=== PATIENT | male | born 1935 | race Caucasian/White ===

== ENCOUNTER 2017-08-26 08:55 | Outpatient (CLI) | payer MEDICARE, BC ==
--- NOTE | 2017-08-26 10:48 | ULT ---
ULTRASOUND OF THE ABDOMINAL AORTA: INDICATIONS: History of abdominal aortic aneurysm. FINDINGS: There is ectasia of the infrarenal abdominal aorta, distally, just prior to the bifurcation, measurin g up to 2.8 cm. The mid abdominal aorta measures 1.6 cm. The proximal abdominal aorta measures 2.1 cm. There is moderate atherosclerotic irregularity. The right common iliac artery measures 1.2 cm. The left common iliac artery measures 1.1 cm. IMPRESSION: Mild ectasia of the distal abdominal aorta and bilateral common iliac arteries with moderate atherosc lerotic irregularity. POS: [facility]
== END 2017-08-26 08:56 | disposition home or self-care (01) ==
LOC: ULT 08:55
PROVIDERS: ATTEND Internal Medicine Cardiovascular Disease
DX: I71.4 Abdominal aortic aneurysm, without rupture (principal); I77.811 Abdominal aortic ectasia; I70.8 Atherosclerosis of other arteries
CPT/HCPCS: 76775

== ENCOUNTER 2017-10-17 12:56 | Emergency (ER) | payer MEDICARE, BC ==
[2017-10-17 13:33] LABS: #Eosinphils 0.1 thou/uL (0.0-0.7); #Monocytes 0.5 thou/uL (0.11-0.59); #Neutrophils 1.9 thou/uL (1.40-6.50); %Basophils 0.4 % (0.0-1.0); %Eosinophils 2.3 % (0.0-10.0); %Lymphocytes 43.9 % (21.0-51.0); %Monocytes 11.5 % (0.0-10.0); %Neutrophils 41.9 % (42.0-75.0); Hemoglobin 12.4 g/dL (14.0-18.0); Mean Corpuscular HGB CONC 35.1 g/dL (32.0-36.0); Mean Corpuscular Hemoglobin 33.3 pg (27.0-31.0); Mean Corpuscular Volume 94.9 fL (78.0-98.0); Mean Platelet Volume 6.6 fL (7.4-10.4); Platelet Count 178 thou/uL (130-400); RBC Distribution Width 11.8 % (11.5-14.5); Red Blood Cell (RBC) Count 3.71 mill/uL (4.70-6.10); White Blood Cell (WBC) Count 4.4 thou/uL (4.8-10.8)
[2017-10-17 13:52] LABS: ALT (SGPT) 11 U/L (8-55); AST (SGOT) 20 U/L (5-34); Albumin 4.3 g/dL (3.4-4.8); Alkaline Phosphatase 47 U/L (40-150); Anion Gap 14 mmol/L (10-20); BUN (Urea Nitrogen) 21 mg/dL (8.4-25.7); Bilirubin, Total 0.7 mg/dL (0.2-1.2); Calc. Creatinine Clearance 0 mL/min (70-130); Calcium 9.3 mg/dL (7.8-10.44); Carbon Dioxide 22 mmol/L (23-31); Chloride 99 mmol/L (98-107); Estimated GFR-MDRD 61; Globulin 2.9 g/dL (2.4-3.5); Glucose 125 mg/dL (83-110); Potassium 4.2 mmol/L (3.5-5.1); Protein, Total 7.2 g/dL (5.8-8.1); Sodium 131 mmol/L (136-145)
[2017-10-17 14:48] LABS: CKMB 3.8 ng/mL (0-6.6); Troponin I Less than 0.010 ng/mL (< 0.028)
== END 2017-10-17 15:15 | disposition home or self-care (01) ==
LOC: ERS 12:56
DX: R53.1 Weakness (principal); I11.0 Hypertensive heart disease with heart failure; J32.9 Chronic sinusitis, unspecified; I50.9 Heart failure, unspecified; E78.00 Pure hypercholesterolemia, unspecified; I48.91 Unspecified atrial fibrillation; I25.10 Atherosclerotic heart disease of native coronary artery without angina pectoris
CPT/HCPCS: 36415; 80053; 82553; 84484; 85025; 93005

== ENCOUNTER 2018-09-29 07:43 | Outpatient (CLI) | payer MEDICARE, BC ==
--- NOTE | 2018-09-29 11:02 | CT ---
CT ABDOMEN AND PELVIS WITH CONTRAST: Indications: Abdominal pain, weight loss, constipation. Comparison: None. FINDINGS: Images through the lung bases are clear. The liver, spleen, and pancreas are unremarkable. There are numerous calcified gallstones layering dependently in a mildly distended gallbladder. No bi liary duct dilatation. Adrenal glands normal. Kidneys unremarkable. There are numerous tiny low density foci in both kidneys which are subcentimete r and too small to characterize, probably representing tiny cysts. No evidence of hydronephrosis or u rinary tract calculus. The bladder is distended. Prostate shows mild hypertrophy. Small bowel loops are normal caliber. Appendix appears normal. Colon unremarkable. The aorta is calcified and tortuous. The aorta exhibits fusiform aneurysmal dilatation measuring up t o 3.3 cm diameter. Small amount of thrombus in the gonzales of the aorta. Common iliac arteries are ecta tic. Diffuse arterial calcification. No evidence of mass, adenopathy or free fluid. IMPRESSION: 1. Cholelithiasis. 2. Aorta is diffusely calcified and tortuous. Mild fusiform aneurysmal dilatation of the abdominal ao rta with aortic diameter in the low abdominal aorta measuring 3.0 cm in the coronal plane and 3.3 cm in the axial plane. 3. Urinary bladder distention. POS: [facility]
[2018-09-29] MEDS ORDERED: ISOVUE-370 76%-LOCM 1 ML ONE (16:25)
== END 2018-09-29 07:44 | disposition home or self-care (01) ==
LOC: BICCT 07:43
PROVIDERS: ATTEND Physician Assistant Medical
DX: K59.00 Constipation, unspecified (principal); R10.9 Unspecified abdominal pain; R63.4 Abnormal weight loss; K80.20 Calculus of gallbladder without cholecystitis without obstruction; I71.4 Abdominal aortic aneurysm, without rupture; N32.89 Other specified disorders of bladder
CPT/HCPCS: 74177

== ENCOUNTER 2020-01-14 06:59 | Outpatient (CLI) | payer MEDICARE, BC ==
[2020-01-14 12:55] LABS: #Eosinphils 0.3 10x3/uL (0.0-0.5); #Monocytes 0.8 10x3/uL (0.0-1.1); #Neutrophils 3.2 10x3/uL (1.5-8.4); %Basophils 0.5 % (0.0-2.0); %Eosinophils 4.1 % (0.0-6.0); %Lymphocytes 33.6 % (18.0-47.0); %Monocytes 11.9 % (0.0-10.0); %Neutrophils 49.7 % (40.0-75.0); Mean Corpuscular HGB CONC 33.1 G/DL (32.0-36.0); Mean Corpuscular Hemoglobin 31.7 PG (27.0-33.0); Mean Corpuscular Volume 95.9 fl (80.0-100.0); Mean Platelet Volume 10.3 fl (7.4-10.4); Platelet Count 156 10x3/uL (130-400); RBC Distribution Width 13.3 % (11.5-14.5); Red Blood Cell (RBC) Count 3.15 10x6/uL (4.40-5.80); White Blood Cell (WBC) Count 6.4 10x3/uL (4.5-11.0)
[2020-01-14 13:37] LABS: ALT (SGPT) 14 U/L (8-55); AST (SGOT) 26 U/L (5-34); Albumin 4.4 g/dL (3.4-4.8); Alkaline Phosphatase 54 U/L (40-110); Anion Gap 16 mmol/L (10-20); BUN (Urea Nitrogen) 41 mg/dL (8.4-25.7); Bilirubin, Total 0.8 mg/dL (0.2-1.2); Calc. Creatinine Clearance 0 mL/min (70-130); Calcium 9.2 mg/dL (7.8-10.44); Carbon Dioxide 25 mmol/L (23-31); Chloride 98 mmol/L (98-107); Estimated GFR-MDRD 49; Globulin 2.7 g/dL (2.4-3.5); Glucose 97 mg/dL (83-110); Potassium 5.4 mmol/L (3.5-5.1); Protein, Total 7.1 g/dL (5.8-8.1); Sodium 134 mmol/L (136-145)
[2020-01-15 00:33] LABS: SARS-CoV-2 MS2 Positive; SARS-CoV-2 N Gene Negative; SARS-CoV-2 S Gene Negative; SARS-CoV-2 by NAA Not Detected (NotDetected); SARS-CoV-2 orf1ab Negative
== END 2020-01-14 07:00 | disposition home or self-care (01) ==
LOC: LABBT 06:59
PROVIDERS: ATTEND Internal Medicine Cardiovascular Disease
DX: Z01.812 Encounter for preprocedural laboratory examination (principal); Z20.828 Contact with and (suspected) exposure to other viral communicable diseases; I35.0 Nonrheumatic aortic (valve) stenosis
CPT/HCPCS: 80053; 85025; U0003; 87635

== ENCOUNTER 2020-01-17 05:57 | Day surgery (SDC) | payer MEDICARE, BC ==
[2020-01-16 11:49] VITALS: BMI 21.7
[2020-01-17] MEDS ORDERED: Fentanyl 100 MCG/2 ML VIAL ONE (07:41)
[2020-01-17] MEDS ORDERED: Acetaminophen/Codeine 30-300mg Tablet ONE (10:08)
[2020-01-17] MEDS ORDERED: Acetaminophen/Codeine 30-300mg Tablet PO PRN ×2 (12:00)
[2020-01-17] MEDS ORDERED: Sodium Chloride 0.9% 1,000 ML IV SCH (12:00)
[2020-01-17] MEDS ORDERED: Nitroglycerin 0.4 MG TAB (25 Tab Bottle) SL PRN (12:00)
== END 2020-01-17 15:01 | disposition home or self-care (01) ==
LOC: SDC 05:57
PROVIDERS: ATTEND Internal Medicine Cardiovascular Disease
PROC: 4A023N8 Measurement of Cardiac Sampling and Pressure, Bilateral, Percutaneous Approach (ICD-10-PCS; principal; 2020-01-17)
PROC: B2111ZZ Fluoroscopy of Multiple Coronary Arteries using Low Osmolar Contrast (ICD-10-PCS; 2020-01-17)
DX: I25.110 Atherosclerotic heart disease of native coronary artery with unstable angina pectoris (principal); E78.00 Pure hypercholesterolemia, unspecified; E78.5 Hyperlipidemia, unspecified; I11.0 Hypertensive heart disease with heart failure; I50.22 Chronic systolic (congestive) heart failure; I25.2 Old myocardial infarction; I25.5 Ischemic cardiomyopathy; N17.9 Acute kidney failure, unspecified; Z79.02 Long term (current) use of antithrombotics/antiplatelets; Z79.82 Long term (current) use of aspirin; Z79.899 Other long term (current) drug therapy; Z88.1 Allergy status to other antibiotic agents; Z88.2 Allergy status to sulfonamides; Z88.8 Allergy status to other drugs, medicaments and biological substances; Z91.040 Latex allergy status; Z91.048 Other nonmedicinal substance allergy status; Z95.1 Presence of aortocoronary bypass graft; Z95.5 Presence of coronary angioplasty implant and graft
CPT/HCPCS: 76942; 93457; 93561; J1644; J3010

== ENCOUNTER 2021-11-26 17:54 | Emergency (ER) | payer MEDICARE, BC ==
[2021-11-26 18:23] LABS: Hemoglobin 11.3 g/dL (14.0-18.0); Mean Corpuscular Hemoglobin 32.9 pg (27.0-31.0); Mean Corpuscular Volume 99.7 fL (78.0-98.0); Mean Platelet Volume 7.3 fL (7.4-10.4); Platelet Count 142 thou/uL (130-400); RBC Distribution Width 12.6 % (11.5-14.5); Red Blood Cell (RBC) Count 3.43 mill/uL (4.70-6.10)
[2021-11-26 18:42] LABS: Eosinophils 8 % (0-10); Lymphocytes 34 % (21-51); MDiff Complete? YES; Monocytes 8 % (0-10); Neutrophil 49 % (42-75); Platelet Morphology Comment Appears Adequate; Polychromasia SLIGHT = 2-3 cells (100X) (0-2/hpf); Reactive Lymphocytes 1 % (0-10)
[2021-11-26 18:54] LABS: ALT (SGPT) 14 U/L (8-55); AST (SGOT) 32 U/L (5-34); Alkaline Phosphatase 73 U/L (40-110); Anion Gap 13 mmol/L (10-20); BUN (Urea Nitrogen) 33 mg/dL (8.4-25.7); Bilirubin, Total 0.5 mg/dL (0.2-1.2); Calc. Creatinine Clearance 0 mL/min (70-130); Carbon Dioxide 26 mmol/L (23-31); Chloride 100 mmol/L (98-107); Estimated GFR 51; Glucose 105 mg/dL (83-110); Potassium 4.5 mmol/L (3.5-5.1); Sodium 134 mmol/L (136-145)
== END 2021-11-26 21:20 | disposition home or self-care (01) ==
LOC: ERS 17:54
DX: R06.00 Dyspnea, unspecified (principal); I11.0 Hypertensive heart disease with heart failure; E78.00 Pure hypercholesterolemia, unspecified; I50.9 Heart failure, unspecified; I25.10 Atherosclerotic heart disease of native coronary artery without angina pectoris; I25.2 Old myocardial infarction; Z79.899 Other long term (current) drug therapy; Z79.01 Long term (current) use of anticoagulants
CPT/HCPCS: 36415; 71045; 80053; 83880; 84484; 85025; 93005

== ENCOUNTER 2022-03-11 11:20 | Outpatient (CLI) | payer MEDICARE, BC ==
[2022-03-11 12:38] LABS: INR-International Normal Ratio 1.1; PTT 28.2 sec (22.0-33.0); Prothrombin Time 11.9 sec (9.5-12.1)
== END 2022-03-11 11:21 | disposition home or self-care (01) ==
LOC: LABBT 11:20
PROVIDERS: ATTEND Internal Medicine Cardiovascular Disease
DX: Z01.812 Encounter for preprocedural laboratory examination (principal); Z51.81 Encounter for therapeutic drug level monitoring; I42.0 Dilated cardiomyopathy; I51.9 Heart disease, unspecified; Z79.01 Long term (current) use of anticoagulants
CPT/HCPCS: 85610; 85730

== ENCOUNTER 2022-03-15 06:37 | Day surgery (SDC) | payer MEDICARE, BC ==
[2022-03-12 13:45] VITALS: BMI 19.9
[2022-03-15] MEDS ORDERED: Gentamicin 80 MG/2 ML VIAL ONE (08:15)
[2022-03-15] MEDS ORDERED: CEFAZOLIN 1 GM VIAL ONE (08:15)
[2022-03-15] MEDS ORDERED: Lidocaine 1% (PF) 30 ML VIAL ONE (08:15)
[2022-03-15] MEDS ORDERED: Propofol 500 MG/50 ML VIAL ONE (08:45)
[2022-03-15] MEDS ORDERED: FENTANYL 50 MCG/ML 1 ML VIAL ONE (08:46)
[2022-03-15] MEDS ORDERED: Midazolam HCl 2 mg/2 ml Vial ONE (08:46)
[2022-03-15] MEDS ORDERED: PHENYLEPHRINE-NS 100 MCG/ML 10 ML SYRINGE ONE (08:59)
[2022-03-15] MEDS ORDERED: ePHEDrine 50 MG/ML VIAL ONE (08:59)
[2022-03-15] MEDS ORDERED: Fentanyl 100 MCG/2 ML VIAL ONE (11:24)
[2022-03-15] MEDS ORDERED: Cephalexin 250 MG CAP PO SCH (12:00)
== END 2022-03-15 13:58 | disposition home or self-care (01) ==
LOC: SDC 06:37
PROVIDERS: ATTEND Internal Medicine Cardiovascular Disease
PROC: 0JPT0PZ Removal of Cardiac Rhythm Related Device from Trunk Subcutaneous Tissue and Fascia, Open Approach (ICD-10-PCS; principal; 2022-03-15)
PROC: 0JH609Z Insertion of Cardiac Resynchronization Defibrillator Pulse Generator into Chest Subcutaneous Tissue and Fascia, Open Approach (ICD-10-PCS; 2022-03-15)
PROC: 3E0102A Introduction of Anti-Infective Envelope into Subcutaneous Tissue, Open Approach (ICD-10-PCS; 2022-03-15)
DX: Z45.02 Encounter for adjustment and management of automatic implantable cardiac defibrillator (principal); I50.22 Chronic systolic (congestive) heart failure; I48.0 Paroxysmal atrial fibrillation; I47.20 Ventricular tachycardia, unspecified; I42.0 Dilated cardiomyopathy; G89.29 Other chronic pain; M54.9 Dorsalgia, unspecified; I44.2 Atrioventricular block, complete; I25.10 Atherosclerotic heart disease of native coronary artery without angina pectoris; I08.0 Rheumatic disorders of both mitral and aortic valves; Z79.01 Long term (current) use of anticoagulants; Z79.02 Long term (current) use of antithrombotics/antiplatelets; Z79.899 Other long term (current) drug therapy; Z88.1 Allergy status to other antibiotic agents; Z88.2 Allergy status to sulfonamides; Z91.040 Latex allergy status; Z91.048 Other nonmedicinal substance allergy status; Z95.1 Presence of aortocoronary bypass graft; Z95.2 Presence of prosthetic heart valve; Z95.5 Presence of coronary angioplasty implant and graft
CPT/HCPCS: 33241; 33249; C1763; C1882; J3010; J0690; J1580; J2001; J2250; J2704; J3490